=== PATIENT | female | born 1945 | race Caucasian/White ===

== ENCOUNTER 2019-03-14 13:32 | Outpatient (CLI) | payer MEDICARE, OTHER ==
--- NOTE | 2019-03-14 14:07 | MMO ---
Bilateral MAMMO Bilat Screen [facility]. CLINICAL HISTORY: Patient is 73 years old and is seen for screening. The patient has no family history of breast cancer. The patient has no personal history of cancer. VIEWS: The views performed were: bilateral craniocaudal with tomosynthesis and bilateral mediolateral oblique with tomosynthesis. FILMS COMPARED: The present examination has been compared to prior imaging studies performed at [facility] on 11/20/2013, 12/25/2014, 03/15/2016 and 04/25/2017. MAMMOGRAM FINDINGS: There are scattered fibroglandular densities. There are no suspicious masses, suspicious calcifications, or new areas of architectural distortion. IMPRESSION: THERE IS NO MAMMOGRAPHIC EVIDENCE OF MALIGNANCY. A ROUTINE FOLLOW-UP MAMMOGRAM IN 1 YEAR IS RECOMMENDED. THE RESULTS OF THIS EXAM WERE SENT TO THE PATIENT. ACR BI-RADS Category 1 - Negative MAMMOGRAPHY NOTE: 1. A negative mammogram report should not delay a biopsy if a dominant of clinically suspicious mass is present. 2. Approximately 10% to 15% of breast cancers are not detected by mammography. 3. Adenosis and dense breasts may obscure an underlying neoplasm. Reported by: OMAYRA WRIGHT MD Electonically Signed: [id number]
--- NOTE | 2019-03-14 15:38 | BD ---
Exam: DEXA Bone Density 03/14/19 INDICATIONS: Osteoporosis screening. Lumbar Spine: BMD (g/cm2) T-SCORE L1 1.040 0.5 L2 0.946 -0.7 L3 0.962 -1.1 L4 0.999 -0.6 L1-L4 0.991 -0.5 Total density 03/03/05: 0.899. Femoral Neck: 0.689 -1.4 Total Femur: 0.899 -0.3 Total density 03/03/05: 0.832 Impression: 1. Bone mineral density of the lumbar spine within normal range. 2. Bone mineral density of the femoral neck indicates osteopenia. Ten year fracture risk: Major osteoporotic fracture: 16%. Hip fracture: 2.8%. POS: [facility]
== END 2019-03-14 13:33 | disposition home or self-care (01) ==
LOC: BICMAMMO 13:32
PROVIDERS: ATTEND Internal Medicine
DX: Z12.31 Encounter for screening mammogram for malignant neoplasm of breast (principal); M85.89 Other specified disorders of bone density and structure, multiple sites
CPT/HCPCS: 77063; 77067; 77080

== ENCOUNTER 2021-03-10 13:06 | Outpatient (CLI) | payer MEDICARE, OTHER | END 2021-03-10 13:07 | disposition home or self-care (01) | LOC: BICMAMMO 13:06 | PROVIDERS: ATTEND Internal Medicine | DX: Z12.31 Encounter for screening mammogram for malignant neoplasm of breast (principal) | CPT/HCPCS: 77063; 77067 ==

== ENCOUNTER 2022-06-09 11:10 | Outpatient (CLI) | payer MEDICARE, OTHER | END 2022-06-09 11:11 | disposition home or self-care (01) | LOC: BICMAMMO 11:10 | PROVIDERS: ATTEND Internal Medicine | DX: Z12.31 Encounter for screening mammogram for malignant neoplasm of breast (principal) | CPT/HCPCS: 77063; 77067 ==

== ENCOUNTER 2023-08-31 11:13 | Outpatient (CLI) | payer MEDICARE, OTHER | END 2023-08-31 11:14 | disposition home or self-care (01) | LOC: BICMAMMO 11:13 | PROVIDERS: ATTEND Internal Medicine | DX: Z12.31 Encounter for screening mammogram for malignant neoplasm of breast (principal) | CPT/HCPCS: 77063; 77067 ==